=== PATIENT | male | born 1975 | race Two or more races ===

== ENCOUNTER 2020-10-24 09:25 | Outpatient (CLI) | payer OTHER | END 2020-10-24 09:37 | disposition home or self-care (01) | LOC: MRI 09:25 | PROVIDERS: ATTEND Specialist | DX: M25.50 Pain in unspecified joint (principal) | CPT/HCPCS: 73218 ==

== ENCOUNTER 2023-01-23 15:07 | Outpatient (CLI) | payer OTHER | END 2023-01-23 15:13 | disposition home or self-care (01) | LOC: MRI 15:07 | PROVIDERS: ATTEND Anesthesiology Pain Medicine | DX: M51.17 Intervertebral disc disorders with radiculopathy, lumbosacral region (principal) | CPT/HCPCS: 72148 ==